=== PATIENT | male | born 1990 | race Caucasian/White ===

== ENCOUNTER 2021-12-05 09:04 | Emergency (ER) | payer OTHER, MEDICAID ==
[~2021-12-05] VITALS: Ht 162.6 cm; Wt 90.7 kg
[2021-12-05 09:13] VITALS: BP 161/99
== END 2021-12-05 09:39 | disposition home or self-care (01) ==
LOC: M.ERS 09:04
DX: R04.0 Epistaxis (principal); R09.89 Other specified symptoms and signs involving the circulatory and respiratory systems; R09.81 Nasal congestion